=== PATIENT | female | born 1940 | race Caucasian/White ===

== ENCOUNTER → 2017-08-01 | Outpatient (CLI) | payer MEDICARE, MEDICAID ==
[~2017-08-01] MED LIST: ALPRAZOLAM 0.0.25 MG PO; AMBIEN 5 MG TABL5 MG PO; ATORVASTATIN CA20 MG PO; FLAGYL500 MG PO; FLUOXETINE HCL10 M1 PO; HYDROCODON-ACE1 EAC8 PO; KEFLEX500 MG PO; LISINOPRIL10 MG PO; NEXIUM 40 MG CA40 M1 PO; NORVASC5 MG PO; ZOFRAN ODT4 MG PO
[2017-08-01 10:29] LABS: ABSOLUTE EOSINOPHILS 0.2 thou/uL (0.0-0.7); ABSOLUTE LYMPHOCYTES 1.4 thou/uL (0.8-5.3); ABSOLUTE MONOCYTES 0.5 thou/uL (0.0-1.2); ABSOLUTE NEUTROPHILS 5.9 thou/uL (1.6-8.1); BASOPHILS 0.6 %; EOSINOPHILS 2.1 %; HEMATOCRIT 42.5 % (37.0-47.0); LYMPHOCYTES 17.1 %; MCH 29.4 pg (26.0-34.0); MCHC 32.9 g/dL (28.0-37.0); MCV 89.2 fL (80.0-100.0); MONOCYTES 6.1 %; MPV 9.7 fl. (7.2-11.1); NUCLEATED RBCS 0 /100WBC; PLATELET COUNT* 155 thou/uL (150-400); POLYS 74.1 %; RBC 4.77 mil/uL (4.20-5.00); RDW-CV 13.7 % (10.5-14.5); WBC 7.9 thou/uL (4.0-11.0)
[2017-08-01 10:46] LABS: ALBUMIN 3.8 g/dL (3.4-5.0); ALKALINE PHOSPHATASE 63 U/L (46-116); ANION GAP 8 mmol/L (7-16); BUN 21 mg/dL (7-18); CALCIUM 9.6 mg/dL (8.5-10.1); CHLORIDE 103 mmol/L (98-107); CHOLESTEROL 176 mg/dL (<200); CO2 28 mmol/L (21-32); CREATININE 1.6 mg/dL (0.6-1.3); GLUCOSE 104 mg/dL (70-99); HDL CHOLESTEROL 29 mg/dL (>40); LDL CHOLESTEROL 107 mg/dL (<100); POTASSIUM 3.9 mmol/L (3.5-5.1); SGOT 14 U/L (15-37); SGPT 17 U/L (30-65); SODIUM 139 mmol/L (136-145); TC:HDL 6.1 Ratio (Not establshd); TOTAL BILIRUBIN 0.8 mg/dL (<0.1-1.0); TOTAL PROTEIN 7.7 g/dL (6.4-8.2); TRIGLYCERIDE 203 mg/dL (<150); VLDL 41 mg/dL (<40)
[2017-08-01 10:47] LABS: SERUM ASSESSMENT Clear
[2017-08-01 18:11] LABS: GLYCOHEMOGLOBIN (HGB A1C) 5.3 % (4.8-5.6)
== END ==
LOC: M.LAB 10:11
PROVIDERS: Nurse Practitioner Family
DX: Z12.31 Encounter for screening mammogram for malignant neoplasm of breast (principal); I12.9 Hypertensive chronic kidney disease with stage 1 through stage 4 chronic kidney disease, or unspecified chronic kidney disease; N18.3 Chronic kidney disease, stage 3 (moderate); E78.2 Mixed hyperlipidemia; Z00.01 Encounter for general adult medical examination with abnormal findings; R73.09 Other abnormal glucose